=== PATIENT | male | born 2000 | race Caucasian/White ===

== ENCOUNTER 2019-12-22 17:05 | Emergency (ER) | payer BC ==
[~2019-12-22] VITALS: Ht 170.1 cm; Wt 83.9 kg
[2019-12-22] MEDS ORDERED: CEPHALEXIN500 M1 PO (18:50)
== END 2019-12-22 18:48 | disposition home or self-care (01) ==
LOC: ED 17:05
DX: S61.411A Laceration without foreign body of right hand, initial encounter (principal); W26.0XXA Contact with knife, initial encounter; Y93.89 Activity, other specified; Y92.89 Other specified places as the place of occurrence of the external cause; Y99.0 Civilian activity done for income or pay